=== PATIENT | male | born 1975 | race Caucasian/White ===

== ENCOUNTER 2018-07-18 13:38 | Emergency (ER) | payer MEDICAID ==
[~2018-07-18] VITALS: Ht 165.1 cm; Wt 66.0 kg
[2018-07-18] MEDS ORDERED: IBUP-2029 PO (14:01)
[2018-07-18] MEDS ORDERED: ACET-2178 PO (14:01)
[2018-07-18] MEDS ORDERED: MORPHINE SULFATE 10 MG/ML CPJ IM ONE (17:00)
[2018-07-18] MEDS ORDERED: METHOCARBAMOL 500MG TABLET PO ONE (17:00)
[2018-07-18] MEDS ORDERED: KETOROLAC 60MG/2ML VIAL IM ONE (17:00)
[2018-07-18 17:34] VITALS: BP 115/81
== END 2018-07-18 18:40 | disposition home or self-care (01) ==
LOC: ER 13:38
DX: G57.02 Lesion of sciatic nerve, left lower limb (principal); Z90.89 Acquired absence of other organs; Z79.899 Other long term (current) drug therapy
CPT/HCPCS: 96372; 99283; J1885; J2270

== ENCOUNTER 2018-08-04 23:17 | Emergency (ER) | payer MEDICAID ==
[~2018-08-04] VITALS: Ht 165.1 cm; Wt 65.0 kg
[~2018-08-04 23:17] MED LIST: ACET-2178 PO; IBUP-2029 PO
[2018-08-05] MEDS ORDERED: KETOROLAC 60MG/2ML VIAL IM ONE (01:00)
[2018-08-05 02:22] VITALS: BP 129/83
== END 2018-08-05 02:28 | disposition home or self-care (01) ==
LOC: ER 23:17
DX: M54.42 Lumbago with sciatica, left side (principal); Z90.49 Acquired absence of other specified parts of digestive tract
CPT/HCPCS: 96372; 99283; J1885

== ENCOUNTER 2022-05-26 14:40 | Emergency (ER) | payer SELFPAY ==
[~2022-05-26] VITALS: Ht 165.1 cm; Wt 69.0 kg
[~2022-05-26 14:40] MED LIST changes: -ACET-2178 PO; +TOPUD PO
[2022-05-26 15:00] VITALS: BP 16/72
[2022-05-26] MEDS ORDERED: MAGNESIUM/ALUMINUM HYDROXIDE/SIMETHICONE 30ML UDC PO ONE (17:00)
[2022-05-26] MEDS ORDERED: ONDANSETRON 4MG ODT PO ONE (17:00)
[2022-05-26 17:05] LABS: HEMATOCRIT. 49.3 % (42.0-52.0); MEAN CORPUSCULAR HEMOGLOBIN 29.3 pg (28.0-32.0); MEAN CORPUSCULAR VOLUME 85.1 fL (80.0-94.0); MEAN PLATELET VOLUME 9.2 fl (7.4-10.4); PLATELET 180 x1000/uL (130-400); RED BLOOD CELL COUNT 5.79 mill/uL (4.7-6.1); RED CELL DISTRIBUTION WIDTH 13.5 % (11.6-14.6)
[2022-05-26 17:14] LABS: CHLORIDE 103 mEq/L (98-107)
[2022-05-26 18:21] LABS: PLATELET ESTIMATE NORMAL
== END 2022-05-26 23:00 | disposition left against medical advice (07) ==
LOC: ER 14:40
DX: R10.13 Epigastric pain (principal); R11.2 Nausea with vomiting, unspecified; Z90.49 Acquired absence of other specified parts of digestive tract
CPT/HCPCS: 36415; 71045; 80053; 83690; 85025; 93005; 99285; Z7610